=== PATIENT | female | born 1955 | race Caucasian/White ===

== ENCOUNTER 2024-06-13 09:32 | Emergency (ER) | payer MEDICARE ==
--- NOTE | 2024-06-13 09:57 | ED ---
General Adult HPI - General Chief complaint: Fall Stated complaint: fall, R arm injury Time Seen by Provider: 06/13/24 09:35 Source: patient, EMS, RN notes reviewed, old records reviewed Mode of arrival: EMS - History of Present Illness Initial comments: This is a 69-year-old female who presents to the emergency department complaining of right wrist pain with a deformity. Patient states she was trying to pull a steak out of the ground and he came out really she fell back and hurt her wrist. Patient states someone told her she hit her head but she has no scalp pain or headache. Patient denies neck pain patient Nuys numbness weakness. Patient denies any loss of consciousness patient denies being dazed at any time. Patient denies any other injury. - Related Data Allergies Allergy/AdvReac Type Severity Reaction Status Date / Time No Known Allergies Allergy Verified 06/13/24 09:42 Review of Systems ROS Statement: Those systems with pertinent positive or pertinent negative responses have been documented in the HPI. ROS Other: All systems not noted in ROS Statement are negative. Past Medical History Past Medical History: Diabetes Mellitus, Hyperlipidemia, Myocardial Infarction ([place]) Additional Past Medical History / Comment(s): type 1 diabetes Past Surgical History: Coronary Bypass/CABG, Hysterectomy Additional Past Surgical History / Comment(s): triple bypass 2013, sinus surgery 2011, partial hysterectomy Past Psychological History: No Psychological Hx Reported Smoking Status: Former smoker Past Alcohol Use History: Occasional Past Drug Use History: Marijuana General Exam - General Exam Comments Initial Comments: GENERAL Patient is well-developed and well-nourished. Patient is in mild distress. EYES Patient's pupils are equal and round. Extraocular motion is intact SKIN Unremarkable NEURO The patient is alert and oriented A&Ox3 PYSCH Patient has normal interpersonal interactions. MUSCULOSKELETAL Deformed and tender right wrist Course Vital Signs 06/13/24 06/13/24 06/13/24 09:33 10:47 11:08 Temperature 98.5 F Pulse Rate 68 71 71 Respiratory 20 20 20 Rate Blood Pressure 147/55 147/55 169/78 O2 Sat by Pulse 96 96 100 Oximetry 06/13/24 06/13/24 06/13/24 11:09 11:16 11:31 Temperature Pulse Rate 68 70 70 Respiratory 20 20 18 Rate Blood Pressure 178/67 170/67 167/66 O2 Sat by Pulse 100 100 96 Oximetry Procedures - Orthopedic Fracture Reduction Fracture #1 Consent Obtained: verbal consent Side: right Fracture Reduction Location: radius, ulna Analgesia: procedural sedation Technique: traction/counter-traction Post Reduction X-rays Demonstrate: anatomical reduction Post-Reduction Neuro Exam: intact Post-Reduction Vascular Exam: intact Splint Applied: Yes Patient Tolerated Procedure: well - Orthopedic Splinting/Casting Injury #1 Side: right Upper Extremity Injury Location: short arm, wrist Upper Extremity Immobilizer: posterior splint - Procedural Sedation *Procedural Sedation Start Time: 11:03 *Procedural Sedation Stop Time: 11:30 *Risks,benefits, and alternative therapies discussed?: Yes *Patient indicates understanding of risk/benefit discussion?: Yes *Indications: fracture/dislocation reduction *Previous Adverse Reaction to Anesthesia/Sedation?: Yes * Testing Complete?: Yes *ASA Class: II *Mallampati Airway Score: 2 *Time of Last PO Intake: 08:00 Preparation: director university applied, pulse oximeter, capnometry used, supplemental O2 applied, suction/airway equipment at bedside IV Propofol Dose (mgs): 50 Complications: none Patient Tolerated Procedure: well Medical Decision Making - Medical Decision Making EKG is interpreted by myself EKG shows sinus rhythm at 66 bpm AK 128 QRS is 86 QT interval is 393 QTc is 407. Patient's EKG shows no ST segment elevation or depression Was pt. sent in by a medical professional or institution (RADHA Lyles, MEDIA MARKETING MANAGER, urgent care, hospital, or skilled nursing...) When possible be specific @ -No Did you speak to anyone other than the patient for history (EMS, parent, family, police, friend...)? What history was obtained from this source @ -No Did you review nursing and triage notes (agree or disagree)? Why? @ -I reviewed and agree with nursing and triage notes Were old charts reviewed (outside hosp., previous admission, EMS record, old EKG , old radiological studies, urgent care reports/EKG's, skilled nursing records)? Report findings @ -No old charts were reviewed Differential Diagnosis? @ -Fractured wrist, fractured forearm, fracture elbow, this is not an all- inclusive list EKG interpreted by me (3pts min.). @ -As above X-rays interpreted by me (1pt min.). @ -X-ray of the wrist shows a fracture of the radius with dorsal displacement as well as a displaced ulnar styloid. Patient's elbow x-ray shows no acute abnormality CT interpreted by me (1pt min.). @ -None done U/S interpreted by me (1pt. min.). @ -None done What testing was considered but not performed or refused? (CT, X-rays, U/S, labs)? Why? @ -None What meds were considered but not given or refused? Why? @ -None Did you discuss the management of the patient with other professionals (professionals i.e. , PA, MEDIA MARKETING MANAGER, lab, RT, psych nurse, dialysis social worker, government affairs director, teacher, global chief experience officer, leather case finisher)? Give summary @ -No Was smoking cessation discussed for >3mins.? @ -No Was critical care preformed (if so, how long)? @ -No Were there social determinants of health that impacted care today? How? (Homelessness, low income, unemployed, alcoholism, drug addiction, kelley sportation, low edu. Level, literacy, decrease access to med. care, fpc, rehab)? @ -No Was there de-escalation of care discussed even if they declined (Discuss DNR or withdrawal of care, Hospice)? DNR status @ -No What co-morbidities impacted this encounter? (DM, HTN, Smoking, COPD, CAD, Cancer, CVA, ARF, Chemo, Hep., AIDS, mental health diagnosis, sleep apnea, morbid obesity)? @ -None Was patient admitted / discharged? Hospital course, mention meds given and route, prescriptions, significant lab abnormalities, going to OR and other pertinent info. @ -Patient's wrist was fractured and displaced so I consciously sedated the patient and put the wrist back in place and casted the patient. Patient also had an elevated sugar so patient got multiple doses of insulin both long and short acting. Patient was also given 2 L of fluid her sugar came down nicely and she was feeling good so at this time the patient was discharged home Undiagnosed new problem with uncertain prognosis? @ -No Drug Therapy requiring intensive monitoring for toxicity (Heparin, Nitro, Insulin, Cardizem)? @ -No Were any procedures done? @ -No Diagnosis/symptom? @ -Hyperglycemia Acute, or Chronic, or Acute on Chronic? @ -Acute Uncomplicated (without systemic symptoms) or Complicated (systemic symptoms)? @ -Complicated Side effects of treatment? @ -No Exacerbation, Progression, or Severe Exacerbation? @ -No Poses a threat to life or bodily function? How? (Chest pain, [place], [place], pneumonia, PE, COPD, DKA, ARF, appy, cholecystitis, CVA, Diverticulitis, Homicidal, Suicidal, threat to staff... and all critical care pts) @ -No Diagnosis/symptom? @ -Fractured wrist Acute, or Chronic, or Acute on Chronic? @ -Acute Uncomplicated (without systemic symptoms) or Complicated (systemic symptoms)? @ -Complicated Side effects of treatment? @ -None Exacerbation, Progression, or Severe Exacerbation] @ -No Poses a threat to life or bodily function? @ -No - Lab Data Result diagrams: 06/13/24 10:47 06/13/24 11:48 Lab Results 06/13/24 06/13/24 06/13/24 Range/Units 10:10 10:47 11:48 WBC 6.20 (4.50-10.00) 10*3/uL RBC 3.97 L (4.10-5.20) 10*6/uL Hgb 13.3 (12.0-15.0) g/dL Hct 38.4 (37.2-46.3) % MCV 96.7 (80.0-97.0) fL MCH 33.5 H (27.0-32.0) pg MCHC 34.6 (32.0-37.0) g/dL Plt Count 181 (140-440) 10*3/uL MPV 10.4 (9.5-12.2) fL Immature Gran % (Auto) 0.3 % Neutrophils % 73.4 % Lymphocytes % 16.0 % Monocytes % 7.1 % Eosinophils % 2.6 % Basophils % 0.6 % Immature Gran # 0.02 (0.00-0.04) 10*3/uL Neutrophils # 4.55 (1.80-7.70) 10*3/uL Lymphocytes # 0.99 (0.90-5.00) 10*3/uL Monocytes # 0.44 (0.20-1.00) 10*3/uL Eosinophils # 0.16 (0.04-0.35) 10*3/uL Basophils # 0.04 (0.00-0.10) 10*3/uL Sodium 136 L (137-145) mmol/L Potassium 4.8 (3.5-5.1) mmol/L Chloride 101 (98-107) mmol/L Carbon Dioxide 24 (22-30) mmol/L Anion Gap 11 mmol/L BUN 27 H (7-17) mg/dL Creatinine 0.75 (0.52-1.04) mg/dL Est GFR (CKD-EPI)AfAm >90 (>60 ml/min/1.73 sqM) Est GFR (CKD-EPI)NonAf 81 (>60 ml/min/1.73 sqM) Glucose 524 H* (74-99) mg/dL POC Glucose (mg/dL) 517 H* (70-110) mg/dL POC Glu Freezer Machine Operator ID Ricci Danielle Calcium 9.9 (8.4-10.2) mg/dL Total Bilirubin 0.6 (0.2-1.3) mg/dL AST 19 (14-36) U/L ALT 18 (4-34) U/L Alkaline Phosphatase 124 (38-126) U/L Total Protein 7.0 (6.3-8.2) g/dL Albumin 4.0 (3.5-5.0) g/dL Acetone, Qual Positive (Negative) 06/13/24 06/13/24 Range/Units 11:56 14:20 WBC (4.50-10.00) 10*3/uL RBC (4.10-5.20) 10*6/uL Hgb (12.0-15.0) g/dL Hct (37.2-46.3) % MCV (80.0-97.0) fL MCH (27.0-32.0) pg MCHC (32.0-37.0) g/dL Plt Count (140-440) 10*3/uL MPV (9.5-12.2) fL Immature Gran % (Auto) % Neutrophils % % Lymphocytes % % Monocytes % % Eosinophils % % Basophils % % Immature Gran # (0.00-0.04) 10*3/uL Neutrophils # (1.80-7.70) 10*3/uL Lymphocytes # (0.90-5.00) 10*3/uL Monocytes # (0.20-1.00) 10*3/uL Eosinophils # (0.04-0.35) 10*3/uL Basophils # (0.00-0.10) 10*3/uL Sodium (137-145) mmol/L Potassium (3.5-5.1) mmol/L Chloride (98-107) mmol/L Carbon Dioxide (22-30) mmol/L Anion Gap mmol/L BUN (7-17) mg/dL Creatinine (0.52-1.04) mg/dL Est GFR (CKD-EPI)AfAm (>60 ml/min/1.73 sqM) Est GFR (CKD-EPI)NonAf (>60 ml/min/1.73 sqM) Glucose (74-99) mg/dL POC Glucose (mg/dL) 475 H 350 H (70-110) mg/dL POC Glu Freezer Machine Operator ID Ricci Villarreal Calcium (8.4-10.2) mg/dL Total Bilirubin (0.2-1.3) mg/dL AST (14-36) U/L ALT (4-34) U/L Alkaline Phosphatase (38-126) U/L Total Protein (6.3-8.2) g/dL Albumin (3.5-5.0) g/dL Acetone, Qual (Negative) Disposition Clinical Impression: Fall, Hyperglycemia, Fracture of wrist Disposition: HOME SELF-CARE Condition: Good Instructions (If sedation given, give patient instructions): Fall Prevention for Older Adults (ED), Wrist Fracture in Adults (ED) Is patient prescribed a controlled substance at d/c from ED?: No Referrals: Montez Rollins DO [Doctor of Osteopathic Medicine] - 1-2 days Time of Disposition: 14:40
[2024-06-13 10:15] LABS: Glucose,Whole Blood 517 mg/dL (70-110)
--- NOTE | 2024-06-13 10:19 | XR ---
EXAMINATION TYPE: XR elbow complete 3 views RT, XR wrist complete 4 views RT DATE OF EXAM: 06/13/2024 10:11 AM COMPARISON: None CLINICAL INDICATION: Female, 69 years old with history of pain after Trauma; PHH, pain FINDINGS: Right elbow: Osteopenia. No elbow joint effusion. There may be mild olecranon soft tissue swelling. No acute fract ure, subluxation, or dislocation seen. Right wrist: There is a mildly comminuted Colles' fracture distal radial metaphysis with impaction and dorsal angu lation. Dorsal displacement to 4 mm. Associated soft tissue swelling. There is a displaced fracture f ragment of the ulnar styloid process. Prominent scapholunate interval at 3.5 mm may reflect an underl jordana ligamentous injury. Moderate degenerative change first CMC joint. IMPRESSION: Right elbow: 1. Osteopenia. No joint effusion or acute osseous abnormality seen. 2. There may be mild olecranon soft tissue swelling. Right wrist: 3. Mildly comminuted Colles' fracture with 4 mm of dorsal displacement. 4. Displaced fracture of the ulnar styloid process. 5. Prominent scapholunate interval at 3.5 mm suggesting age-indeterminate scapholunate ligament injur y. 6. 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 [facility], , 06/13/2024 10:17 AM
[2024-06-13] MEDS: SODIUM CHLORIDE 0.9% 1,000 ML IV ONE (10:42)
[2024-06-13] MEDS: INSULIN GLARGINE (LANTUS) 100 UNIT/ML SYR SQ SCH (10:52)
[2024-06-13 10:59] LABS: Basophils # (A) 0.04 10*3/uL (0.00-0.10); Basophils % (A) 0.6 %; Eosinophils # (A) 0.16 10*3/uL (0.04-0.35); Eosinophils % (A) 2.6 %; HCT 38.4 % (37.2-46.3); HGB 13.3 g/dL (12.0-15.0); Lymphocytes # (A) 0.99 10*3/uL (0.90-5.00); MCH 33.5 pg (27.0-32.0); MCHC 34.6 g/dL (32.0-37.0); MCV 96.7 fL (80.0-97.0); Mean Platelet Volume 10.4 fL (9.5-12.2); Monocytes # (A) 0.44 10*3/uL (0.20-1.00); Monocytes % (A) 7.1 %; Neutrophils # (A) 4.55 10*3/uL (1.80-7.70); Neutrophils % (A) 73.4 %; Platelet Count 181 10*3/uL (140-440); RBC 3.97 10*6/uL (4.10-5.20); RDW 13.1 % (11.5-14.5)
[2024-06-13] MEDS: PROPOFOL 10 MG/ML 20 ML VIAL IV ONE (11:02)
--- NOTE | 2024-06-13 11:30 | XR ---
EXAMINATION TYPE: XR wrist limited RT DATE OF EXAM: 06/13/2024 11:21 AM COMPARISON: Earlier today CLINICAL INDICATION: Female, 69 years old with history of reduction; PHH, pain TECHNIQUE: 2 views with splint FINDINGS: Redemonstrated mild comminuted transverse fracture distal radial metaphysis. Following reduction, the re is significant improvement of the previous dorsal angulation. Slight residual 3 mm of dorsal displ acement remains improved from approximately 4 mm. Mildly displaced fracture of the ulnar styloid proc ess redemonstrated. Prominent scapholunate interval redemonstrated. Moderate degenerative change firs t CMC joint. IMPRESSION: 1. Known acute Colles' fracture with interval reduction and placement of fiberglass splint. Improveme nt in the dorsal angulation. Residual 3 mm of dorsal displacement remains. 2. Additional fracture of the ulnar styloid process. 3. Prominent scapholunate interval redemonstrated. [facility], Workstation: [facility], 06/13/2024 11:28 AM
[2024-06-13 11:58] LABS: Glucose,Whole Blood 475 mg/dL (70-110)
[2024-06-13 12:08] LABS: ALT 18 U/L (4-34); AST 19 U/L (14-36); African American GFR (CKD) >90 (>60 ml/min/1.73 sqM); Alkaline Phosphatase 124 U/L (38-126); Anion Gap 11 mmol/L; Blood Urea Nitrogen 27 mg/dL (7-17); Calcium 9.9 mg/dL (8.4-10.2); Carbon Dioxide 24 mmol/L (22-30); Chloride 101 mmol/L (98-107); Non-African American GFR(CKD) 81 (>60 ml/min/1.73 sqM); Potassium 4.8 mmol/L (3.5-5.1); Sodium 136 mmol/L (137-145); Total Bilirubin 0.6 mg/dL (0.2-1.3)
[2024-06-13] MEDS: INSULIN LISPRO (HumaLOG) 100 UNIT/ML 10 mL VL SQ ONE ×2 (12:08→13:10)
[2024-06-13] MEDS: SODIUM CHLORIDE 0.9% 500 ML 500 ML IV ONE ×2 (12:08→13:14)
[2024-06-13 12:16] LABS: Glucose 524 mg/dL (74-99)
--- NOTE | 2024-06-13 13:02 | XR ---
EXAMINATION TYPE: XR chest 2V DATE OF EXAM: 06/13/2024 12:58 PM COMPARISON: None CLINICAL INDICATION: Female, 69 years old with history of Difficulty breathing , shortness of breath TECHNIQUE: AP and lateral views FINDINGS: Median sternotomy wires and post-CABG clips. Heart is borderline enlarged. Mild interstitial prominen ce likely due to AP technique and magnification related to body habitus. Some strandy atelectasis lef t midlung. No consolidation or pleural effusion. IMPRESSION: Borderline cardiomegaly. Post-CABG changes. No acute process seen. [facility], Workstation: [facility], 06/13/2024 12:59 PM
[2024-06-13] MEDS: HYDROmorphone 0.5 MG/0.5 ML SYRINGE IVP STA (13:09)
[2024-06-13 14:21] LABS: Glucose,Whole Blood 350 mg/dL (70-110)
[2024-06-13 14:48] VITALS: BP 134/52; PULSE 76; RESP 16; TEMP 97.8
[2024-06-13] MEDS: ACET/COD 300 MG/30 MG STARTER PACK 6 TAB BTL PO STA (14:56)
[2024-06-14] MEDS ORDERED: INSULIN GLARGINE (LANTUS) 100 UNIT/ML SYR SQ SCH (07:00)
== END 2024-06-13 15:04 | disposition home or self-care (01) ==
LOC: EC 09:32
DX: S62.101A Fracture of unspecified carpal bone, right wrist, initial encounter for closed fracture (principal); R73.9 Hyperglycemia, unspecified; Z87.891 Personal history of nicotine dependence; W01.0XXA Fall on same level from slipping, tripping and stumbling without subsequent striking against object, initial encounter
CPT/HCPCS: 99284 ×2; 96374 ×2; 96361 ×2; 25565 ×2; 36415; 93005; 80053; 82009; 85025; 73080; 73100; 73110; 71046; J2704; J1171

== ENCOUNTER 2024-06-19 10:03 | Day surgery (SDC) | payer MEDICARE ==
[2024-06-18 09:42] VITALS: BMI 25.9
--- NOTE | 2024-06-18 22:28 | HP ---
HISTORY AND PHYSICAL DATE OF SURGERY: 06/19/2024. HISTORY OF PRESENT ILLNESS: Whitney Ortiz is a 69-year-old patient seen with a comminuted displaced right distal radial fracture. I recommended open reduction, internal fixation. I reviewed the procedure, risks, complications, benefits, recovery. The patient was agreeable. Consent was obtained. PAST MEDICAL HISTORY: Insulin-dependent diabetes. PAST SURGICAL HISTORY: Coronary artery bypass surgery. DAILY MEDICATIONS: 1. Insulin. 2. Lipitor. 3. Aspirin. ALLERGIES: None reported. SOCIAL HISTORY: She denies tobacco use. PHYSICAL EVALUATION OF THE RIGHT WRIST: There is a splint in place that appears to be in good repair. She is able to move her fingers with minimal discomfort. There is good perfusion and sensation distally. There is no tenderness of the shoulder, or elbow. Distal neurovascular exam is intact. IMAGING STUDIES: Radiographs of the right wrist revealed a comminuted displaced distal radial fracture. There is evidence for a subacute scapholunate ligament widening as well. IMPRESSION: 1. Comminuted displaced right distal radial fracture. 2. Insulin-dependent diabetes. 3. Hyperlipidemia. PLAN: Open reduction, internal fixation of right distal radial fracture. MMODL / IJN: [id number] /
[~2024-06-19 10:03] MED LIST: ACETAMINOPHEN TAB 500 MG TAB PO PRN; TRANEXAMIC 1,000 MG/100ML-NACL 1,000 MG in SALINE 1 100ML.BAG IVPB PRN
[2024-06-19 10:30] LABS: Glucose,Whole Blood 122 mg/dL (70-110)
[2024-06-19] MEDS: MIDAZOLAM 2 MG/2 ML VIAL IV ONE (10:40)
[2024-06-19] MEDS ORDERED: KETOROLAC 15 MG/ML 1 ML VIAL ONE (10:51)
[2024-06-19] MEDS ORDERED: PROPOFOL 10 MG/ML 20 ML VIAL IV ONE (10:51)
[2024-06-19] MEDS ORDERED: fentaNYL (PF) 50 MCG/ML 2 ML AMP ONE (10:51)
[2024-06-19] MEDS ORDERED: LIDOCAINE 1% INJ 10MG/ML (20 ML MDV) ONE (10:51)
[2024-06-19] MEDS ORDERED: ROPIVACAINE 5 MG/ML 30 ML VIAL ONE (10:51)
[2024-06-19] MEDS ORDERED: DEXAMETHASONE SOD PHOSPHATE 4 MG/ML 1 ML VIAL ONE (10:51)
[2024-06-19] MEDS ORDERED: ePHEDrine 50 MG/ML 1 ML VIAL ONE (10:51)
[2024-06-19] MEDS: MELOXICAM 7.5 MG TAB PO PRN (10:52)
[2024-06-19] MEDS: DEXAMETHASONE SOD PHOSPHATE 4 MG/ML 1 ML VIAL IVP STA (10:53)
[2024-06-19] MEDS: LACTATED RINGERS 1,000 ML BAG IV STA (10:54)
[2024-06-19] MEDS: ONDANSETRON 4 MG/2 ML VIAL IVP STA (10:54)
[2024-06-19] MEDS: ceFAZolin 2 GM in DEXTROSE 5% IN WATER 50 ML IVPB PRN (10:55)
[2024-06-19] MEDS: IV FLUID CONTINUATION 1,000 ML IV ONE (10:55)
[2024-06-19] MEDS ORDERED: ONDANSETRON 4 MG/2 ML VIAL IVP PRN (12:11)
[2024-06-19] MEDS ORDERED: HYDROmorphone 0.5 MG/0.5 ML SYRINGE IVP PRN ×3 (12:11)
--- NOTE | 2024-06-19 12:11 | P.OP ---
Date of Procedure: 06/19/24 Preoperative Diagnosis: Comminuted/displaced right distal radius fracture Postoperative Diagnosis: Comminuted/displaced right distal radius fracture Procedure(s) Performed: Open reduction and internal fixation right distal radius fracture Implants: Synthes 2 hole narrow right distal volar wrist plate with four 1.8 buttress pins and two 2.4 mm cortical screws Anesthesia: GETA, regional (Interscalene block) Surgeon: Montez Rollins Security Coordinator #1: Rocky Sanchez Estimated Blood Loss (ml): 5 Pathology: none sent Condition: stable Disposition: PACU Indications for Procedure: 69-year-old patient seen with a comminuted/displaced right distal radius fracture. I recommended open reduction internal fixation. Patient was agreeable and consent was obtained. Operative Findings: See description of procedure Description of Procedure: Patient was taken to the operative suite after having undergone a interscalene block by the department of anesthesia for postoperative pain management. She underwent a general anesthetic by the primary anesthesia. She received preoperative IV antibiotics. A well-padded tourniquet placed along the proximal right upper extremity. The right upper extremity was prepped and draped in the normal sterile orthopedic fashion. We elevated the extremity and insufflated the tourniquet to 250. I made a standard volar incision measuring about 4 cm sharply through skin. I dissected down through the fascia and then the tendons of musculature exposing that proximal radius which revealed a small hematoma. That was evacuated. Periosteal elevators were utilized to better evaluate the fracture. It was comminuted with at least 3 pieces but extra- articular. I now chose a 2 hole right volar wrist plate and reduce the fracture and held that wrist plate and position while I drilled 1 proximal screw hole. I reduced an appropriate length 2.4 mm cortical screw with good fixation noted. The mini C-arm was brought in confirming adequate placement of the plate with an adequate reduction of the fracture. We now drilled 4 holes distally for buttress screws and inserted appropriate length buttress screws with good fixation of the screws noted. I drilled 1 more proximal screw hole in an appropriate length 2.4 mm cortical screw was introduced to that with good fixation noted. The mini C-arm was brought into the operative field noting adequate alignment of the fracture and the internal fixation. Spot films were obtained to document that. The C-arm was pulled back. The wound was irrigated with saline solution. The subcutaneous soft tissues were repaired with Vicryl suture. The skin was repaired utilizing a subcutaneous running suture augmented with skin glue. Sterile dressings were applied. The tourniquet was released with immediate capillary refill of all digits noted. We now placed the patient into a well-padded volar splint. Webril followed by loose Jin bandage was applied. Patient was then awakened, transferred to the bed and recovery in stable condition. Ted GARCIA assisted in all aspects of this procedure.
[2024-06-19 12:46] LABS: Glucose,Whole Blood 181 mg/dL (70-110)
[2024-06-19] MEDS ORDERED: DEXTROSE 50% SYRINGE 50 ML IVP PRN ×2 (15:03)
[2024-06-19] MEDS: HYDROcodone/APAP 5-325MG 1 EACH TAB PO PRN (15:37)
[2024-06-19] MEDS: LACTATED RINGERS 1,000 ML IV SCH (15:47)
[2024-06-19 17:09] LABS: Glucose,Whole Blood 431 mg/dL (70-110)
--- NOTE | 2024-06-19 17:10 | P.CONS ---
History of Present Illness - Reason for Consult Consult date: 06/19/24 Medical Management Requesting physician: Montez Rollins - History of Present Illness History of Presenting Illness: Patient is a 69-year-old female with a past medical history of CAD status post CABG x 3, type 1 insulin-dependent diabetes, hypertension, hyperlipidemia, and history of previous complications with anesthesia. She is currently admitted under orthopedic surgery team and underwent open reduction and internal fixation of right distal radius fracture secondary to comminuted displaced right distal radius fracture. Surgical procedure was completed by Dr. Rollins. We were consulted for medical management throughout hospitalization. Patient was seen and fully evaluated in room 472. Patient currently remains drowsy from anesthesia/pain medication administered during and after surgical procedure. Patient is easily awoken via verbal stimuli and able to answer questions appropriately then drifts back to sleep. She denies having any headache, lightheadedness, dizziness, chest pain, palpitations, shortness of breath, or any other complaints. She reports feeling hungry and has tolerated crackers and clear liquid diet after surgery and preparing to eat dinner shortly. Patient currently reports pain is controlled and states it is only mild after pain medication. Patient reports slightly decreased sensation in distal right fingers but movement intact. Review of systems: Pertinent positives and negatives as discussed in HPI, a complete review of systems was performed and all other systems are negative. Physical exam: Vital signs reviewed and stable. General: Nontoxic, no distress and appears stated age. Derm: Skin warm and dry, normal coloration for ethnicity. Head: Atraumatic, normocephalic and symmetric. Eyes: EOM's intact, no lid lag, and anicteric sclera Mouth: no lip lesions, mucus membranes moist Cardiovascular: regular rate and rhythm with normal S1S2, systolic murmur, positive posterior tibial pulses bilaterally, and cap refill < 2 seconds. Lungs: Respirations even, regular, and unlabored on room air. Lungs CTA bilaterally, no rhonchi, no rales, no wheezing, and no accessory muscle usage. Abdominal: soft, nontender to palpation, no guarding, no appreciable organomegaly Ext: No gross muscle atrophy, no edema, no contractures. Right arm with short arm postsurgical splint in place. Movement intact fingers, patient reports slightly reduced sensation. Cap refill less than 2 seconds. Neuro: Speech clear, face symmetrical and CN II-XII grossly intact with no noted focal neuro deficits Psych: Alert and oriented to person, place, time, and situation. Appropriate and pleasant affect. Assessment and Plan of Care: Status post ORIF of right distal radius fracture - Management per primary admitting orthopedic surgery team including DVT prophylaxis, pain management, wound/splint management, and PT/OT. - Recommend telemetry monitoring during the first 24 hours postoperatively secondary to patient's reports of previous difficulties with anesthesia. Type 1 diabetes mellitus with hyperglycemia -Continue Lantus 15 units nightly and 20 units each morning along with glycemic protocol and Humalog sliding scale. Patient reports she does not have her insulin pump on her at this time CAD status post CABG x 3 Hypertension Hyperlipidemia -Hold aspirin until cleared by orthopedic surgery team to resume. Patient to continue with rosuvastatin 20 mg daily and metoprolol succinate 25 mg daily. Data reviewed: -Reviewed operative report showing a total of 5 cc of blood loss. -Vital signs reviewed. Blood pressure 133/58, heart rate 88, respiratory rate 16, temp 98.1 F, and SpO2 97% on 2 L - Labs reviewed. Blood glucose trending from 122-181. Thank you for allowing us to participate in the care of this pleasant patient. Do not hesitate to contact us with questions. Someone can be reached from the [facility] hospitalist group all hours of the day at [phone] or via [place] serve. Patient was seen independently by Nurse Practitioner. This document was prepared using H[employer] dictation software. Please allow for errors in tire wrapper while rare they do occur. Cl Lao NP rendered care for this patient independently, reviewed the findings and plan as documented in the note above and agree with plan. I did not physically speak with or examine the patient on this date. Past Medical History Past Medical History: Coronary Artery Disease (CAD), Diabetes Mellitus, Hyperlipidemia, Myocardial Infarction (HI), Osteoarthritis (OA) Additional Past Medical History / Comment(s): rt fx wrist from a fall pulling a stake out of the ground and hit head on the ground,bruising to left back and butt cheeck on Sun06-13-24,osteoporsis,type 1 diabetes, hx prior many broken bones,Feb 2023 covid infection hospitalized with blood sugars > 1000 w/ coma, hospitalized in Nov 2023 hospitalized for glucose >900,[facility] [place],was on eliquis for short time for a "bubble or clot in the bottom of my heart then it resoved and I was taken off eliquis approx April 2023". Last Myocardial Infarction Date:: unk History of Any Multi-Drug Resistant Organisms: None Reported Past Surgical History: Coronary Bypass/CABG, Hysterectomy Additional Past Surgical History / Comment(s): triple bypass 2013, sinus surgery 2011, partial hysterectomy Past Anesthesia/Blood Transfusion Reactions: Previous Problems w/ Anesthesia Additional Past Anesthesia/Blood Transfusion Reaction / Comm: had difficult time coming out and waking up from Anesthesia w/ nasal surgery, goes under anesthesia very easily. no hx of known blood transfusion. unk family hx w/ anesthesia Smoking Status: Former smoker - Past Family History Father Additional Family Medical History / Comment(s): dad when pt was 10 Mother Family Medical History: Diabetes Mellitus Additional Family Medical History / Comment(s): at age 54 due to diabetes complications Medications and Allergies Home Medications Medication Instructions Recorded Confirmed Type Aspirin 81 mg PO DAILY 06/18/24 06/18/24 History Cholecalciferol (Vitamin D3) 2 dose PO DAILY 06/18/24 06/18/24 History [Vitamin D3 (500 Iu/5 ML)] HYDROcodone/APAP 5-325MG [[place] 1 tab PO Q6HR PRN 06/18/24 06/18/24 History 5-325] Insulin Aspart [NovoLOG] 0 units SQ ACHS PRN 06/18/24 06/18/24 History Insulin Glargine (Lantus) [Lantus 15 unit SQ HS 06/18/24 06/18/24 History Vial] Insulin Glargine,Hum.rec.anlog 20 units SQ QAM 06/18/24 06/18/24 History [Lantus Solostar Pen] Metoprolol Succinate [Metoprolol 25 mg PO QAM 06/18/24 06/18/24 History Succinate ER] Rosuvastatin Calcium 20 mg PO DAILY 06/18/24 06/18/24 History Allergies Allergy/AdvReac Type Severity Reaction Status Date / Time No Known Allergies Allergy Verified 06/19/24 10:15 Physical Exam Vitals: Vital Signs Temp Pulse Pulse Resp BP Pulse Ox 06/19/24 14:00 88 16 177/79 97 06/19/24 13:45 87 16 145/65 92 L 04/24/25 13:30 88 16 175/79 100 06/19/24 13:15 87 16 178/79 100 06/19/24 13:00 87 16 171/77 100 06/19/24 12:45 88 16 171/77 100 06/19/24 12:30 97.2 F L 88 16 190/81 100 06/19/24 10:44 65 16 123/55 94 L 06/19/24 10:25 97.0 F L 73 16 177/77 97 Intake and Output 06/19/24 06/19/24 06/19/24 06:59 14:59 22:59 Intake Total 925 Output Total 5 Balance 920 Intake: IV 925 Output: Estimated Blood Loss 5 Other: Weight 62.8 kg Results Labs: Abnormal Lab Results - Last 24 Hours (Table) 06/19/24 06/19/24 Range/Units 10:29 12:44 POC Glucose (mg/dL) 122 H 181 H (70-110) mg/dL
[2024-06-19] MEDS: INSULIN LISPRO (HumaLOG) 100 UNIT/ML 10 mL VL SQ SCH (17:55)
[2024-06-19] MEDS: INSULIN LISPRO (HumaLOG) 100 UNIT/ML 10 mL VL SQ ONE (18:01)
[2024-06-19 20:11] LABS: Glucose,Whole Blood 345 mg/dL (70-110)
[2024-06-19] MEDS: ceFAZolin 2 GM in DEXTROSE 5% IN WATER 50 ML IVPB SCH (20:27)
[2024-06-19] MEDS: INSULIN GLARGINE (LANTUS) 100 UNIT/ML SYR SQ SCH (20:27)
[2024-06-19 22:54] LABS: Glucose,Whole Blood 246 mg/dL (70-110)
[2024-06-20 06:23] LABS: Glucose,Whole Blood 320 mg/dL (70-110)
--- NOTE | 2024-06-20 07:23 | P.ANPRN ---
Procedure Note - Anesthesia - Nerve Block Performed Right Supraclavicular Single Time Out Performed: Yes Date of Procedure: 06/19/24 Procedure Start Time: 10:40 Procedure Stop Time: 10:44 Location of Patient: PreOp Indication: Acute Post-Operative Pain, Requested by Surgeon Sedation Type: Sedate with meaningful contact maintained Preparation: Sterile Prep Position: Supine Needle Types: Pajunk Needle Gauge: 21 Ultrasound used to visualize needle placement: Yes Ultrasound used to observe medication spread: Yes Blood Aspirated: No Pain Paresthesia on Injection Noted: No Resistance on Injection: Normal Image Stored and Saved: Yes Events: Uneventful and Well Tolerated ([place] 0.5% 20 cc plus dexamethasone 4 mg)
[2024-06-20 07:41] VITALS: BP 130/62; PULSE 80; RESP 20; TEMP 98.8
[2024-06-20] MEDS: ATORVASTATIN 40 MG TAB PO SCH (08:32)
[2024-06-20] MEDS: METOPROLOL SUCCINATE (ER) 25 MG TAB.ER.24H PO SCH (08:32)
[2024-06-20] MEDS: INSULIN GLARGINE (LANTUS) 100 UNIT/ML SYR SQ SCH (08:32)
[2024-06-20] MEDS ORDERED: CHOLECALCIFEROL PO SCH (09:00)
[2024-06-20] MEDS ORDERED: [UNRECOGNIZED DRUG - OTHER] PO SCH (09:00)
--- NOTE | 2024-06-20 11:33 | P.PN ---
Subjective Progress Note Date: 06/20/24 History of Presenting Illness: Patient is a 69-year-old female with a past medical history of CAD status post CABG x 3, type 1 insulin-dependent diabetes, hypertension, hyperlipidemia, and history of previous complications with anesthesia. She is currently admitted under orthopedic surgery team and underwent open reduction and internal fixation of right distal radius fracture secondary to comminuted displaced right distal radius fracture. Surgical procedure was completed by Dr. Rollins. We were consulted for medical management throughout hospitalization. Physical exam: Patient seen and fully evaluated at the bedside. Patient reports she is doing better than she felt yesterday and is ready to go home. Patient expresses frustration stating that she hung a sign on her door stating do not disturb overnight and someone from lab came to draw her blood work this morning around 4 AM. Patient refused to have her labs drawn and expressing much frustration over being awoken when she placed a do not disturb sign on her door. Patient denies any other complaints Vital signs reviewed and stable. General: Nontoxic, no distress and appears stated age. Derm: Skin warm and dry, normal coloration for ethnicity. Head: Atraumatic, normocephalic and symmetric. Eyes: EOM's intact, no lid lag, and anicteric sclera Mouth: no lip lesions, mucus membranes moist Cardiovascular: regular rate and rhythm with normal S1S2, systolic murmur, positive posterior tibial pulses bilaterally, and cap refill < 2 seconds. Lungs: Respirations even, regular, and unlabored on room air. Lungs CTA bilaterally, no rhonchi, no rales, no wheezing, and no accessory muscle usage. Abdominal: soft, nontender to palpation, no guarding, no appreciable organomegaly Ext: No gross muscle atrophy, no edema, no contractures. Right arm with short arm postsurgical splint in place. Movement and sensation intact on distal fingers. Cap refill less than 2 seconds. Neuro: Speech clear, face symmetrical and CN II-XII grossly intact with no noted focal neuro deficits Psych: Alert and oriented to person, place, time, and situation. Appropriate and pleasant affect. Assessment and Plan of Care: Status post ORIF of right distal radius fracture - Management per primary admitting orthopedic surgery team including DVT prophylaxis, pain management, wound/splint management, and PT/OT. - Recommend telemetry monitoring during the first 24 hours postoperatively secondary to patient's reports of previous difficulties with anesthesia. Type 1 diabetes mellitus with hyperglycemia -Continue Lantus 15 units nightly and 20 units each morning along with glycemic protocol and Humalog sliding scale. Patient reports she does not have her insulin pump on her at this time CAD status post CABG x 3 Hypertension Hyperlipidemia -Hold aspirin until cleared by orthopedic surgery team to resume. Patient to continue with rosuvastatin 20 mg daily and metoprolol succinate 25 mg daily. Data reviewed: -Vital signs reviewed. Blood pressure 130/62, heart rate 80, respiratory rate 20, temp 98.8 F, and SpO2 of 93% on room air. - Postoperative labs not reviewed as patient refused to allow lab draw. Patient is medically optimized for discharge once cleared by primary admitting orthopedic surgery team. Thank you for allowing us to participate in the care of this pleasant patient. Do not hesitate to contact us with questions. Someone can be reached from the [facility] Hospitalist group all hours of the day at [phone] or via [employer]. Patient was seen independently by Nurse Practitioner. This document was prepared using isocket dictation software. Please allow for errors in content coordinator while rare they do occur. Cl Lao NP rendered care for this patient independently, reviewed the findings and plan as documented in the note above and agree with plan. I did not physically speak with or examine the patient on this date. Objective - Vital Signs Vital signs: Vital Signs Temp 98.8 F 06/20/24 07:02 Pulse 80 06/20/24 07:02 Resp 20 06/20/24 07:02 BP 130/62 06/20/24 07:02 Pulse Ox 93 L 06/20/24 07:02 FiO2 Intake & Output 06/19/24 06/20/24 06/20/24 18:59 06:59 18:59 Intake Total 925 360 Output Total 5 Balance 920 360 Weight 62.8 kg Intake: IV 925 Oral 360 Output: Estimated Blood Loss 5 Other: Voiding Method Toilet # Voids 1 1 - Labs Labs: Abnormal Lab Results - Last 24 Hours (Table) 06/19/24 06/19/24 06/19/24 Range/Units 10:29 12:44 17:07 POC Glucose (mg/dL) 122 H 181 H 431 H (70-110) mg/dL Hemoglobin A1c (<=6.0) % 06/19/24 06/19/24 06/20/24 Range/Units 20:10 22:52 03:55 POC Glucose (mg/dL) 345 H 246 H (70-110) mg/dL Hemoglobin A1c 9.9 H (<=6.0) % 06/20/24 Range/Units 06:21 POC Glucose (mg/dL) 320 H (70-110) mg/dL Hemoglobin A1c (<=6.0) %
[2024-06-20 11:51] LABS: Glucose,Whole Blood 364 mg/dL (70-110)
--- NOTE | 2024-06-20 11:54 | P.PN ---
Subjective Progress Note Date: 06/20/24 Principal diagnosis: Status post ORIF right distal radius fracture Patient evaluated at bedside, she is resting comfortably. Splint is in good position and condition. She denies any headaches, lightheadedness, chest pain or shortness of breath Objective - Vital Signs Vital signs: Vital Signs Temp 98.8 F 06/20/24 07:02 Pulse 80 06/20/24 07:02 Resp 20 06/20/24 07:02 BP 130/62 06/20/24 07:02 Pulse Ox 93 L 06/20/24 07:02 FiO2 Intake & Output 06/19/24 06/20/24 06/20/24 18:59 06:59 18:59 Intake Total 925 360 Output Total 5 Balance 920 360 Weight 62.8 kg Intake: IV 925 Oral 360 Output: Estimated Blood Loss 5 Other: Voiding Method Toilet # Voids 1 1 - Exam Right upper extremity: Postop splint is in good position and condition, sensation to light touch both proximal distal are intact. She is wiggling all fingers and no issues. Cap refills less than 3 seconds. - Labs Labs: Abnormal Lab Results - Last 24 Hours (Table) 06/19/24 06/19/24 06/19/24 Range/Units 12:44 17:07 20:10 POC Glucose (mg/dL) 181 H 431 H 345 H (70-110) mg/dL Hemoglobin A1c (<=6.0) % 06/19/24 06/20/24 06/20/24 Range/Units 22:52 03:55 06:21 POC Glucose (mg/dL) 246 H 320 H (70-110) mg/dL Hemoglobin A1c 9.9 H (<=6.0) % 06/20/24 Range/Units 11:50 POC Glucose (mg/dL) 364 H (70-110) mg/dL Hemoglobin A1c (<=6.0) % Assessment and Plan Assessment: Postoperative day #1 status post ORIF right distal radius fracture Plan: Pain control, plan for discharge on [place] 5 mg / 325 mg Postop splint instructions were discussed, she will leave this on at all times, she will keep clean and dry Activity level instructions were discussed with patient Medical recommendations appreciated Stable for discharge home today Time with Patient: Less than 30
--- NOTE | 2024-06-20 11:58 | P.DS ---
Providers Date of admission: 06/19/2024 Expected date of discharge: 06/20/24 Attending physician: Montez Rollins Consults: 06/19/24 12:11 Consult Physician Routine Consulting Provider: Patricia Fleming Consult Reason/Comments: Medical management Do you want consulting provider notified?: Yes Primary care physician: Stated None Hospital Course: Date of admission: 06/19/2024 Date of discharge: 06/20/2024 Admission diagnosis: Status post ORIF right distal radius fracture Discharge diagnosis: Same Attending physician: Dr. Rollins Surgical procedures: ORIF right distal radius fracture Brief history: Patient is a 69-year-old female with a history of displaced right distal radius fracture. At this point patient has failed conservative treatment measures and has opted to proceed with a elective open reduction internal fixation right distal radius fracture. Hospital course: Details of patient's surgery can be found in operative report. Patient tolerated the procedure well and was subsequently transported to orthopedic floor. Patient's orthopeidc and medical care was provided daily. Patient had daily laboratory tests performed for evaluation of overall blood counts. Patient had daily physical therapy to include strengthening range of motion as well as education with walker ambulation. Patient was treated with ANDRADE hose stockings and compression stockings for their postoperative DVT prophylaxis during their inpatient stay. Patient was noted to have a relatively uneventful postoperative course. Patient reported satisfactory pain control with oral pain medications by postoperative day 0. Patient showed satisfactory progress with physical therapy. Patient moved steadily through the program and had no difficulty meeting the goals by postoperative day 1. Given patient's otherwise satisfactory course and having met physical therapy goals, plan is to discharge patient [home] on postoperative day 1. Discharge condition/disposition: Patient will be discharged [home] in stable condition. Discharge medications: Instructions are given on resumption of patient's normal daily medications per primary care recommendation, in addition patient will be prescribed [place] 5 mg / 325 mg. Discharge instructions: 1. Nonweightbearing right upper extremity 2. Utilize splint at all times, keep covered when showering 3. Ice and elevate 4. Pain medication as needed 5. Follow-up with advanced orthopedics in 2 weeks for recheck Procedures: Open reduction internal fixation right distal radius fracture Patient Condition at Discharge: Good Plan - Discharge Summary Discharge Rx Participant: No New Discharge Prescriptions: New HYDROcodone/APAP 5-325MG [[place] 5-325] 1 tab PO Q6HR PRN #18 tab PRN Reason: Pain Continue Insulin Glargine,Hum.rec.anlog [Lantus Solostar Pen] 20 units SQ QAM Insulin Glargine (Lantus) [Lantus Vial] 15 unit SQ HS Metoprolol Succinate [Metoprolol Succinate ER] 25 mg PO QAM Rosuvastatin Calcium 20 mg PO DAILY Cholecalciferol (Vitamin D3) [Vitamin D3 (500 Iu/5 ML)] 2 dose PO DAILY Insulin Aspart [NovoLOG] 0 units SQ ACHS PRN PRN Reason: blood sugars Aspirin 81 mg PO DAILY HYDROcodone/APAP 5-325MG [[place] 5-325] 1 tab PO Q6HR PRN PRN Reason: Pain Discharge Medication List Aspirin 81 mg PO DAILY 06/18/24 [History] Cholecalciferol (Vitamin D3) [Vitamin D3 (500 Iu/5 ML)] 2 dose PO DAILY 06/18/24 [History] HYDROcodone/APAP 5-325MG [[place] 5-325] 1 tab PO Q6HR PRN 06/18/24 [History] Insulin Aspart [NovoLOG] 0 units SQ ACHS PRN 06/18/24 [History] Insulin Glargine (Lantus) [Lantus Vial] 15 unit SQ HS 06/18/24 [History] Insulin Glargine,Hum.rec.anlog [Lantus Solostar Pen] 20 units SQ QAM 06/18/24 [History] Metoprolol Succinate [Metoprolol Succinate ER] 25 mg PO QAM 06/18/24 [History] Rosuvastatin Calcium 20 mg PO DAILY 06/18/24 [History] HYDROcodone/APAP 5-325MG [[place] 5-325] 1 tab PO Q6HR PRN #18 tab 06/20/24 [Rx] Follow up Appointment(s)/Referral(s): Rocky Sanchez PAC [PHYSICIAN HAND ICER] - 2 Weeks Activity/Diet/Wound Care/Special Instructions: Orthopedic discharge instructions: 1. Do not remove splint 2. Keep covered and dry while showering 3. Ice and elevate 4. Pain medication as needed 5. Plan for follow-up with advanced orthopedics in 2 weeks Discharge Disposition: HOME SELF-CARE
== END 2024-06-20 13:03 | disposition home or self-care (01) ==
LOC: OR 10:03 → 4SSUR 12:25 → OR 06-20 13:03
PROVIDERS: ATTEND Orthopaedic Surgery
DX: S52.551A Other extraarticular fracture of lower end of right radius, initial encounter for closed fracture (principal); W18.39XA Other fall on same level, initial encounter; G89.18 Other acute postprocedural pain; E10.65 Type 1 diabetes mellitus with hyperglycemia; E78.5 Hyperlipidemia, unspecified; M19.90 Unspecified osteoarthritis, unspecified site; I25.10 Atherosclerotic heart disease of native coronary artery without angina pectoris; I10 Essential (primary) hypertension; I25.2 Old myocardial infarction; M81.0 Age-related osteoporosis without current pathological fracture; Z79.4 Long term (current) use of insulin; Z79.899 Other long term (current) drug therapy; Z79.82 Long term (current) use of aspirin; Z95.1 Presence of aortocoronary bypass graft; Z87.891 Personal history of nicotine dependence; Z90.710 Acquired absence of both cervix and uterus; Z86.16 Personal history of COVID-19
CPT/HCPCS: 25607; 64415; 83036; C1713; J2250; J1100; J0690 ×2; J2405